=== PATIENT | female | born 1945 | race Hispanic/Latino ===

== ENCOUNTER 2017-12-17 12:56 | Inpatient (IN) | payer MEDICAID, MEDICARE, OTHER ==
[2017-12-17 12:57] VITALS: BMI 24.9
--- NOTE | 2017-12-17 13:50 | ED PDOC ---
Arrival/HPI - General Chief Complaint: Cough, Cold, Congestion Time Seen by Provider: 12/17/17 13:35 Historian: Patient - History of Present Illness Narrative History of Present Illness (Text): 12/17/17 13:48 Patient is a 72 year old female whose past medical history includes COPD, who presents to the Emergency department for cough, congestion, and body pain. Patient reports that her symptoms started yesterday. She notes a subjective fever of 101F. Patient denies chills, shortness of breath, chest pain, dyspnea on exertion, abdominal pain, nausea, vomiting, diarrhea, urinary changes, back pain, neck pain, headache, dizziness, or any other complaint. PMD: Time/Duration: 24 hours Symptom Onset: Sudden Symptom Course: Unchanged Context: Home Past Medical History - Provider Review Nursing Documentation Reviewed: Yes - Infectious Disease Hx of Infectious Diseases: None - Tetanus Immunization Tetanus Immunization: Unknown - Cardiac Hx Cardiac Disorders: No Hx Hypertension: Yes - Pulmonary Hx Chronic Obstructive Pulmonary Disease (COPD): Yes (o2 dependent) Hx Tuberculosis: No - Neurological HX Cerebrovascular Accident: No Hx Seizures: No - HEENT Hx HEENT Disorder: No - Renal Hx Renal Disorder: No - Endocrine/Metabolic Hx Hypothyroidism: No - Hematological/Oncological Hx Cancer: Yes (mouth & neck CA) - Integumentary Hx Dermatological Disorder: Yes Hx Squamous Cell Carcinoma: Yes (No Chemo treatment; surgery 10 yrs ago at [facility]) - Musculoskeletal/Rheumatological Hx Arthritis: Yes Hx Fractures: Yes (right wrist fracture) Hx Osteoporosis: Yes Hx Rheumatoid Arthritis: No - Gastrointestinal Hx Gastrointestinal Disorders: No - Genitourinary/Gynecological Hx Sexually Transmitted Diseases: No - Psychiatric Hx Anxiety: Yes Hx Bipolar Disorder: Yes Hx Depression: Yes Hx Post Traumatic Stress Disorder: Yes Hx Schizophrenia: Yes Hx Substance Use: Yes - Surgical History Hx Hysterectomy: Yes (Partial) Other/Comment: mouth and neck CA SX - Anesthesia Hx Anesthesia: Yes Hx Anesthesia Reactions: No Hx Malignant Hyperthermia: No - Suicidal Assessment Feels Threatened In Home Enviroment: No Family/Social History - Physician Review Nursing Documentation Reviewed: Yes Family/Social History: Unknown Family HX Smoking Status: Former Smoker Hx Alcohol Use: Yes (etoh abuse) Hx Substance Use: Yes Allergies/Home Meds Allergies/Adverse Reactions: Allergies No Known Allergies Allergy (Verified 12/05/17 16:36) Home Medications: Home Meds Medication Instructions Recorded Confirmed RX: amLODIPine [Norvasc] 5 mg PO DAILY 03/01/17 12/17/17 RX: Albuterol HFA [Ventolin HFA 90 2 puff IH TID 07/30/17 12/17/17 mcg/actuation (8 g)] RX: Meloxicam [Mobic] 7.5 mg PO DAILY PRN 07/30/17 12/17/17 RX: traZODone [Desyrel] 100 mg PO HS 07/30/17 12/17/17 Ergocalciferol [Drisdol 50,000 1 cap PO Q7D 12/17/17 12/17/17 Intl Units Cap] RX: Atorvastatin [Lipitor] 1 tab PO HS 12/17/17 12/17/17 RX: Gabapentin [Neurontin] 1 tab PO DAILY 12/17/17 12/17/17 RX: Nicotine 21 mg/24 hr [Nicoderm 1 patch TD Q24H 12/17/17 12/17/17 Cq] RX: Thiamine [Vitamin B1 Tab] 1 tab PO DAILY 12/17/17 12/17/17 RX: hydrOXYzine HCl [Atarax] 25 mg PO BID PRN 12/17/17 12/17/17 Tiotropium [Spiriva] 1 cap IH DAILY 12/17/17 12/17/17 Review of Systems - Physician Review All systems were reviewed & negative as marked: Yes - Review of Systems Constitutional: Fevers. absent: Night Sweats ENT: Other (nasal congestion) Respiratory: Cough. absent: SOB Cardiovascular: absent: Chest Pain, MCCRACKEN, Syncope Gastrointestinal: absent: Abdominal Pain, Diarrhea, Nausea, Vomiting Genitourinary Female: absent: Urine Output Changes Musculoskeletal: absent: Back Pain, Neck Pain Neurological: absent: Headache, Dizziness Physical Exam Temperature: Afebrile Blood Pressure: Hypertensive Pulse: Regular Respiratory Rate: Normal Appearance: Positive for: Well-Appearing Mental Status: Positive for: Alert and Oriented X 3 - Systems Exam Head: Present: Atraumatic, Normocephalic Pupils: Present: PERRL Extroacular Muscles: Present: EOMI Conjunctiva: Present: Normal Mouth: Present: Moist Mucous Membranes Neck: Present: Normal Range of Motion Respiratory/Chest: Present: Good Air Exchange, Wheezes (diffuse), Rhonchi. No: Respiratory Distress, Accessory Muscle Use Cardiovascular: Present: Regular Rate and Rhythm, Normal S1, S2. No: Murmurs Abdomen: No: Tenderness, Distention, Peritoneal Signs Back: Present: Normal Inspection Upper Extremity: Present: Normal Inspection. No: Cyanosis, Edema Lower Extremity: Present: Normal Inspection. No: Edema Neurological: Present: GCS=15, CN II-XII Intact, Speech Normal Skin: Present: Warm, Dry, Normal Color. No: Rashes Psychiatric: Present: Alert, Oriented x 3, Normal Insight, Normal Concentration Medical Decision Making ED Course and Treatment: 12/17/17 13:54 Impression: Patient is a 72 year old female complaining of congestion, cough, and fever. Differential Diagnosis included but are not limited to: pna copd Plan: -- VBG -- EKG -- Cardiac enzymes -- Blood work -- Chest X-ray -- Blood and urine culture -- influenza test -- Urinalysis. -- Reassess and disposition Prior Visits: Notes and results from previous visits were reviewed. Progress Notes: 12/17/17 13:23 EKG shows NSR at [address]/T wave changes. Interpreted by me. 12/17/17 19:[address] serrato bedside accepted needs iv steriods iv antiotics. - Lab Interpretations I have reviewed the lab results: Yes - RAD Interpretation Narrative RAD Interpretations (Text): 12/17/17 14:48 Chest X-ray: Dictator : Raúl Mcrae MD FINDINGS: LUNGS: There is a patchy infiltrate at the right lung base. There is elevation of the right hemidiaphragm PLEURA: No significant pleural effusion identified, no pneumothorax apparent. CARDIOVASCULAR: Normal. OSSEOUS STRUCTURES: No significant abnormalities. VISUALIZED UPPER ABDOMEN: Normal. OTHER FINDINGS: None. IMPRESSION: There is a patchy infiltrate at the right lung base. There is elevation of the right hemidiaphragm. Radiology Orders: 12/17/17 13:41 CHEST PORTABLE [RAD] Stat Transportation Technician: Radiologist - EKG Interpretation Interpreted by ED Physician: Yes Type: 12 lead EKG - Medication Orders Current Medication Orders: Albuterol/Ipratropium (Duoneb 3 Mg/0.5 Mg (3 Ml) Ud) 3 ml IH Q15M SUNNY Stop: 12/17/17 14:16 Discontinued Medications Methylprednisolone (Solu-Medrol) 125 mg IVP STAT STA Stop: 12/17/17 13:42 - Scribe Statement The provider has reviewed the documentation as recorded by the Huaibmylene Jimenez Provider Scribe Attestation: All medical record entries made by the Scribe were at my direction and personally dictated by me. I have reviewed the chart and agree that the record accurately reflects my personal performance of the history, physical exam, medical decision making, and the department course for this patient. I have also personally directed, reviewed, and agree with the discharge instructions and disposition. Disposition/Present on Arrival - Present on Arrival Any Indicators Present on Arrival: No History of DVT/PE: No History of Uncontrolled Diabetes: No Urinary Catheter: No History of Decub. Ulcer: No History Surgical Site Infection Following: None - Disposition Have Diagnosis and Disposition been Completed?: Yes Diagnosis: COPD (chronic obstructive pulmonary disease), Pneumonia Disposition: HOSPITALIZED Disposition Time: 19:42 Patient Problems: Current Active Problems Problem Status Onset Pneumonia Acute COPD (chronic obstructive pulmonary disease) Chronic Condition: FAIR
[2017-12-17] MEDS ORDERED: levoFLOXacin 750 mg in D5W 750 MG/150 ML BAG IVPB STA (14:28)
[2017-12-17] MEDS: Albuterol-Ipratrop 3 mg / 0.5 (3 ml) UD IH SCH ×3 (14:30→15:24)
--- NOTE | 2017-12-17 14:43 | RAD ---
Date of service: 12/17/2017 HISTORY: cough COMPARISON: No prior. FINDINGS: LUNGS: There is a patchy infiltrate at the right lung base. There is elevation of the right hemidiaphragm PLEURA: No significant pleural effusion identified, no pneumothorax apparent. CARDIOVASCULAR: Normal. OSSEOUS STRUCTURES: No significant abnormalities. VISUALIZED UPPER ABDOMEN: Normal. OTHER FINDINGS: None. IMPRESSION: There is a patchy infiltrate at the right lung base. There is elevation of the right hemidiaphragm
[2017-12-17 15:46] LABS: BASO # 0.04 K/mm3 (0.0-2.0); BASO % 0.4 % (0.0-3.0); EOS # 0.1 (0.0-0.7); EOS % 0.5 % (1.5-5.0); GRAN # 8.22 (1.4-6.5); GRAN % 82.1 % (50.0-68.0); HEMOGLOBIN 13.4 g/dL (12.0-16.0); LYMPH # 1.1 (1.2-3.4); LYMPH % 10.7 % (22.0-35.0); MEAN CELL VOLUME 103.8 fl (80.0-105.0); MEAN CORPUSCULAR HEMOGLOBIN 34.1 pg (25.0-35.0); MEAN CORPUSCULAR HGB CONC 32.8 g/dl (31.0-37.0); MONO # 0.6 (0.1-0.6); MONO % 6.3 % (1.0-6.0); RBC 3.93 10^6/uL (3.5-6.1); RED CELL DISTRIBUTION WIDTH 15.9 % (11.5-14.5)
[2017-12-17 15:47] LABS: VENOUS BLOOD GAS BASE EXCESS 1.9 mmol/L (0.0-2.0); VENOUS BLOOD GAS PO2 32 mm/Hg (30-55); VENOUS BLOOD PH 7.33 (7.32-7.43)
--- NOTE | 2017-12-17 15:50 | CARD ---
APPROVED REPORT Date of service: 12/17/2017 EKG Measurement Heart [id number] <Conclusion> Normal sinus rhythm Low voltage QRS Possible Anterolateral infarct, age undetermined Abnormal ECG
[2017-12-17 15:56] LABS: INR 0.99; PARTIAL THROMBOPLASTIN TIME 30.4 Seconds (25.1-36.5); PROTHROMBIN TIME 11.3 SECONDS (9.4-12.5)
[2017-12-17] MEDS ORDERED: Ergocalciferol 50,000 Intl Units Cap PO SCH (16:00)
[2017-12-17 16:01] LABS: ALB/GLOB RATIO 1.4 (1.1-1.8); ALBUMIN 4.5 g/dL (3.0-4.8); ALT/SGPT 34 U/L (7-56); AST/SGOT 31 U/L (14-36); BLOOD UREA NITROGEN 7 mg/dL (7-21); CALCIUM 9.6 mg/dL (8.4-10.5); GFR NON-AFRICAN AMERICAN > 60
[2017-12-17 16:12] LABS: B-TYPE NATRIURETIC PEPTIDE 545 pg/mL (0-450); TROPONIN I < 0.01 ng/mL
[2017-12-17 17:54] LABS: PH,URINE 6.5 (4.7-8.0); URINE BILIRUBIN NEGATIVE (NEGATIVE); URINE BLOOD NEGATIVE (NEGATIVE); URINE GLUCOSE (UA) NEGATIVE (NEGATIVE); URINE LEUKOCYTE ESTERASE NEGATIVE Leu/uL (NEGATIVE); URINE PROTEIN NEGATIVE mg/dL (<30 mg/dL); URINE UROBILINOGEN 0.2 E.U./dL (<1 E.U./dL)
[2017-12-17 17:55] LABS: URINE APPEARANCE SL CLOUDY (CLEAR); URINE COLOR YELLOW (YELLOW)
[2017-12-17 17:57] LABS: URINE BACTERIA MANY (NEG); URINE RBC NEGATIVE /hpf (0-2); URINE WBC 0 - 2 /hpf (0-6)
[2017-12-17 18:33] VITALS: TEMP 99.7; O2SAT 96
--- NOTE | 2017-12-17 19:41 | CON ---
DATE: 12/17/2017 PULMONARY CONSULT REFERRING PHYSICIAN: Yael Scales MD REASON FOR CONSULT: Chronic obstructive lung disease, may have pneumonia. HISTORY OF PRESENT ILLNESS: This is 72 years old female with past medical history significant for chronic obstructive lung disease, hypertension, apparently was exposed to Clorox at home, entered with acute bronchospasms with cough and shortness of breath, also has some headache. Sent to emergency room. Had chest x-ray done, which shows some infiltrate and elevated hemidiaphragm. No hemoptysis, no emesis, no hematuria, no diarrhea, no leg swelling reported. PAST MEDICAL HISTORY: Hypertension, chronic obstructive lung disease. Also, has a history of squamous cell carcinoma of the skin, arthritis, history of right wrist fracture, osteoporosis, anxiety disorder. Also carried diagnosis of bipolar and schizophrenia. ALLERGIES: NONE KNOWN. SOCIAL HISTORY: Just recently stopped smoking. Does have a history of alcohol abuse. MEDICATIONS: As outpatient, she had been on amlodipine 5 mg daily, DuoNeb every 2 hours three times a day, Mobic 7.5 mg daily, trazodone 100 mg at bedtime, Lipitor one tab daily, vitamin D 50,000 units every 7 days, Neurontin daily basis, also on Nicoderm patch, thiamine 100 mg daily, Spiriva inhaled daily, Atarax 25 mg twice a day. REVIEW OF SYSTEMS: Had some headache, not much rhinitis. Has a cough, sputum production. No hemoptysis. No chest pain. No vomiting. No abdominal pain. No dysuria. No leg pain or leg swelling. PHYSICAL EXAMINATION: GENERAL: [id number] distress cough and shortness of breath. VITAL SIGNS: Temperature is 100.3, subjective fever was up to 101, heart rate 85, respiratory rate is 24 to 30, blood pressure 161/77, pulse ox 95% on nasal cannula. HEENT: Moist mucous membranes. NECK: Supple. No thrush. LUNGS: Bilateral diffuse expiratory wheezing. HEART: S1 and S2. ABDOMEN: Soft, nontender. No organomegaly. EXTREMITIES: No edema. NEUROLOGIC: Awake, alert, and follows simple commands. LABORATORY DATA: Labs are pending. Chest x-ray done, which shows pulmonary infiltrates with mildly elevated hemidiaphragm. IMPRESSION AND PLAN: Exacerbation of chronic obstructive lung disease, probably have pneumonia, also elevated hemidiaphragm. History of bipolar disorder, schizophrenia, hypertension. Case discussed Dr. Scales. Also spoke to emergency room physician, spoke to nursing staff. Already received three doses of DuoNeb. Solu-Medrol 125 mg given. We will continue her home medication and add Brovana, Pulmicort, and Mucomyst twice a day. Continue Solu-Medrol 60 mg every 8 hours. We will add Rocephin 1 g IV daily, Zithromax 500 mg IV daily. We will send urine for Legionella. Sputum for culture and sensitivity. Gastric prophylaxis, DVT prophylaxis. Continue NicoDerm patch. Dr. Scales will follow up. We will do CT scan of the chest without contrast to further evaluate pulmonary infiltrate and elevated diaphragm. Thank you and we will follow with you. Sade Marte MD
[2017-12-17 21:30] LABS: HDL CHOLESTEROL 75 mg/dL (29-60)
[2017-12-17 21:41] LABS: LDL CHOLESTEROL 73 mg/dL (0-129)
[2017-12-17] MEDS: Arformoterol 15 mcg/2 ml Inh Sol IH SCH (22:16)
[2017-12-17] MEDS: Acetylcysteine 20% Inhal Soln (4ml) IH SCH (22:16)
[2017-12-17] MEDS: Budesonide 0.5 mg/2 ml Inhal Susp UD IH SCH (22:16)
[2017-12-17 23:56] VITALS: RESP 18
[2017-12-18] MEDS ORDERED: DiphenhydrAMINE 50 mg/ml Inj IVP STA (00:18)
--- NOTE | 2017-12-18 05:36 | HP ---
The patient is a 72-year-old female. Patient was seen and examined at the bedside on 12/17/2017. CHIEF COMPLAINT: Cough, cold, congestion, shortness of breath. HISTORY OF PRESENT ILLNESS: Ms. Perlita Viera is a 72-year-old female with past medical history of COPD, came to the Emergency Room Department for coughing, congestion and body pains. Patient reports that her symptoms started yesterday ,subjective fever of 101. Patient denies chills. No hematuria. No hematochezia. No nausea, vomiting or diarrhea. No urinary symptoms. No neck pain. No back pain. No headache or dizziness. PAST MEDICAL HISTORY: Hypertension, COPD, cancer of mouth and neck, squamous cell carcinoma, surgery 10 years ago at [facility], right wrist fracture, osteoporosis, anxiety, bipolar, depression, history of schizophrenia, substance abuse especially alcohol abuse, partial hysterectomy. FAMILY HISTORY: Father and mother noncontributory. HABITS: Former smoker. Alcohol, yes. Substance abuse, yes. ALLERGIES: PATIENT IS NOT ALLERGIC WITH ANY MEDICATIONS. HOME MEDICATIONS: Norvasc, albuterol, meloxicam, trazodone, vitamin D, Lipitor, Neurontin, Nicotine, thiamine. REVIEW OF SYSTEMS: Patient is seen and examined at the bedside in her room. Looking comfortable. No nausea, vomiting or diarrhea. No hematuria. No hematochezia. No headache or dizziness. Still coughing. Having shortness of breath. Feeling feverish, fatigue and tired. PHYSICAL EXAMINATION: VITAL SIGNS: Temperature 100.3, heart rate 85, respiratory rate 24, blood pressure 161/77, pulse oximetry 95% on nasal cannula. HEENT: Head: Normocephalic, atraumatic. Eyes: PERRLA. Extraocular muscles intact. Conjunctivae clear. Nose patent. Mucous membrane moist. NECK: Supple. No carotid bruit. No JVD or thyromegaly. CHEST: Bilaterally symmetrical. HEART: S1 and S2 positive. LUNGS: Clear to auscultation. ABDOMEN: Soft. Bowel sounds positive. No organomegaly. EXTREMITIES: No edema. No cyanosis. NEUROLOGICAL: Patient is awake and alert. Moving all 4 extremities. No focal deficits. LABORATORY DATA: White blood cell 10, hemoglobin 13.4, hematocrit 40.8, platelets 164. Sodium 139, potassium 4, BUN 7, creatinine 0.8. Glucose noted , magnesium 1.4. BNP 545. ASSESSMENT AND PLAN: Ms. Perlita Viera is a 72-year-old lady with hyperglycemia, hypomagnesemia, was replaced, urinary tract infection. Influenza type A and B is negative. History of multiple medical problem. Most of the time she goes to [facility], but this time she came to [place], history of hypertension, chronic obstructive lung disease, history of squamous cell carcinoma of the skin, arthritis, cancer of the mouth, history of right wrist fracture, osteoporosis, anxiety disorder, bipolar and schizophrenia, now came with exacerbation of chronic obstructive pulmonary disease, probably have pneumonia and elevated hemidiaphragm. Dr. Marte saw the patient, started patient on Solu-Medrol, intravenous Rocephin and azithromycin. Discussion done with Dr. Marte. Gastrointestinal and deep venous thrombosis prophylaxes given. Nicoderm patch given. Gastrointestinal and deep venous thrombosis prophylaxes. We will do CAT scan of the chest. We will follow up. Yael Scales MD MTDShar
[2017-12-18 07:21] LABS: HEMOGLOBIN 11.9 g/dL (12.0-16.0); MEAN CELL VOLUME 103.6 fl (80.0-105.0); MEAN CORPUSCULAR HEMOGLOBIN 33.1 pg (25.0-35.0); MEAN PLATELET VOLUME 11.2 fl (7.0-11.0); RBC 3.59 10^6/uL (3.5-6.1); RED CELL DISTRIBUTION WIDTH 15.7 % (11.5-14.5); WHITE BLOOD COUNT 6.2 10^3/ul (4.5-11.0)
[2017-12-18 07:28] LABS: BLOOD UREA NITROGEN 15 mg/dL (7-21); CALCIUM 9.1 mg/dL (8.4-10.5); GFR NON-AFRICAN AMERICAN > 60
[2017-12-18] MEDS: Arformoterol 15 mcg/2 ml Inh Sol IH SCH (08:01)
[2017-12-18] MEDS: Budesonide 0.5 mg/2 ml Inhal Susp UD IH SCH (08:01)
[2017-12-18] MEDS: Acetylcysteine 20% Inhal Soln (4ml) IH SCH (08:01)
[2017-12-18 09:17] VITALS: BP 154/76; PULSE 80
[2017-12-18] MEDS ORDERED: Pantoprazole 40 mg EC Tab PO SCH (10:00)
== END 2017-12-18 11:00 | disposition left against medical advice (07) | DRG 190 ==
LOC: ED 12:56 → ERH 16:11 → 3RNO 19:00
PROVIDERS: ADMIT Internal Medicine Pulmonary Disease; ATTEND Internal Medicine
DX: J44.1 Chronic obstructive pulmonary disease with (acute) exacerbation (principal); J18.9 Pneumonia, unspecified organism; N39.0 Urinary tract infection, site not specified; J44.0 Chronic obstructive pulmonary disease with (acute) lower respiratory infection; I10 Essential (primary) hypertension; M81.0 Age-related osteoporosis without current pathological fracture; F20.9 Schizophrenia, unspecified; F41.9 Anxiety disorder, unspecified; E83.42 Hypomagnesemia; R73.9 Hyperglycemia, unspecified; F43.10 Post-traumatic stress disorder, unspecified; Z85.828 Personal history of other malignant neoplasm of skin; Z85.819 Personal history of malignant neoplasm of unspecified site of lip, oral cavity, and pharynx; Z87.891 Personal history of nicotine dependence; Z99.81 Dependence on supplemental oxygen